=== PATIENT | female | born 1975 | race Caucasian/White ===

== ENCOUNTER 2021-05-05 10:00 | Emergency (ER) | payer OTHER ==
[~2021-05-05] VITALS: Ht 162.6 cm; Wt 77.1 kg
[2021-05-05 10:00] VITALS: BP_SYST 122
[2021-05-05] MEDS ORDERED: FLUORESCEIN SODIUM 1 MG OPHTHALMIC STRIP OP ONE (10:30)
[2021-05-05] MEDS ORDERED: PROPARACAINE (OPTHANINE 0.5%) 15 ML DROPS OP ONE (10:30)
[2021-05-05] MEDS ORDERED: HYDR-3917 PO (10:33)
[2021-05-05] MEDS ORDERED: ACYC-133 PO (10:33)
[2021-05-05 10:49] VITALS: BP_SYST 113
== END 2021-05-05 10:49 | disposition home or self-care (01) ==
LOC: SED 10:00
DX: B02.9 Zoster without complications (principal)
CPT/HCPCS: 99283